=== PATIENT | male | born 1955 | race Caucasian/White ===

== ENCOUNTER 2017-12-27 08:53 | Outpatient (CLI) | payer OTHER | END 2017-12-27 08:58 | disposition home or self-care (01) | LOC: SONOGRAMA 08:53 | DX: M75.121 Complete rotator cuff tear or rupture of right shoulder, not specified as traumatic (principal) ==

== ENCOUNTER 2019-07-03 14:25 | Outpatient (CLI) | payer OTHER | END 2019-07-03 14:38 | disposition home or self-care (01) | LOC: SONOGRAMA 14:25 → MAMO-SONO 15:15 | DX: M17.12 Unilateral primary osteoarthritis, left knee (principal); M25.562 Pain in left knee ==

== ENCOUNTER 2025-08-01 07:19 | Outpatient (CLI) | payer OTHER | END 2025-08-01 07:21 | disposition home or self-care (01) | LOC: SONOGRAMA 07:19 | DX: R10.13 Epigastric pain (principal) ==